=== PATIENT | female | born 2000 | race Caucasian/White ===

== ENCOUNTER 2021-05-18 04:17 | Emergency (ER) | payer OTHER ==
[2021-05-18] MEDS ORDERED: Ondansetron 4 MG Tab.DIS PO ONE (04:56)
[2021-05-18] MEDS ORDERED: Sodium Chloride 0.9% 10 ML Syringe FLUSH PRN (05:42)
[2021-05-18 06:01] LABS: CORONAVIRUS COVID-19 NAA NEGATIVE (NEGATIVE)
[2021-05-18] MEDS ORDERED: Iopamidol 612 MG/ML 100 ML Bottle IV STA (06:05)
[2021-05-18] MEDS ORDERED: Sodium Chloride 0.9% 50 ML IV STA (06:05)
[2021-05-18] MEDS ORDERED: Ketorolac 30 MG/ML SDV IVPUSH ONE (06:28)
== END 2021-05-18 06:54 | disposition home or self-care (01) ==
LOC: JP.ED 04:17
DX: S39.011A Strain of muscle, fascia and tendon of abdomen, initial encounter (principal); K52.9 Noninfective gastroenteritis and colitis, unspecified; Z88.8 Allergy status to other drugs, medicaments and biological substances; Z20.822 Contact with and (suspected) exposure to COVID-19
CPT/HCPCS: 0241U; 36415; 74177; 80053; 81001; 81025; 83605; 83690; 85025; 96374; 99283; 99284-25; J1885; Q0162; Q9967